=== PATIENT | male | born 1965 | race Caucasian/White ===

== ENCOUNTER 2017-01-06 22:31 | Emergency (ER) | payer OTHER ==
[~2017-01-06 22:31] MED LIST: ALBUTEROL0.09 MG/A4 IH; AMOXICILLIN 8751 TAB PO; BACTRIM DS 8001 TAB PO; BUFEN200 MG PO; CALCIUM500 MG PO; CETIRIZINE10 MG PO; GLEEVEC400 MG PO; GOOD NEIGHBOR500 M2 PO; INSULIN 70/3100 U/ML SC; INVANZ1 GM IV.SOLN; MULTIPLE VITAMI1 CAP PO; NOVOLIN 70/301.5 ML SQ; OXYCODONE5 M1 PO; PENICILLIN-VK500 M1 PO; PREDNISONE20 M1 PO; SPRYCEL20 MG
[2017-01-07 03:10] VITALS: BP 131/54
[2017-07-15] MEDS ORDERED: LASIX20 M1 PO (20:17)
[2017-07-15] MEDS ORDERED: ALBUTEROL2.5 MG/3 M IH (20:54)
== END 2017-01-07 03:20 | disposition short-term general hospital (02) ==
LOC: ED 22:31
DX: A41.9 Sepsis, unspecified organism (principal); L03.90 Cellulitis, unspecified; J90 Pleural effusion, not elsewhere classified; D72.829 Elevated white blood cell count, unspecified
CPT/HCPCS: J3370; J7030; J7050; Q9967

== ENCOUNTER 2017-01-11 11:48 | Outpatient (RCR) | payer OTHER ==
[2017-01-11 11:58] VITALS: BP 151/95
[2017-01-11] MEDS ORDERED: SPRYCEL100 MG PO (12:30)
[2017-01-11] MEDS ORDERED: ALEVE 220MG220 MG PO (12:31)
[2017-01-11] MEDS ORDERED: TESSALON PERLE100 M1 PO (12:32)
[2017-01-11 12:44] VITALS: BP 148/96
[2017-01-12 12:15] VITALS: BP 155/93
[2017-01-12 13:00] VITALS: BP 170/99
[2017-01-13 12:05] VITALS: BP 165/93
[2017-01-13 13:05] VITALS: BP 168/104
[2017-01-14 11:50] VITALS: BP 157/102
[2017-01-14 12:30] VITALS: BP 167/99
[2017-01-15 11:51] VITALS: BP 183/102
[2017-01-15 12:40] VITALS: BP 154/87
--- NOTE | 2017-01-15 12:41 | NUR ---
patient expressed concern when he was told what his admission b/p read, 183/102, he then stated he was supposed to see Dr. Dixon after his dismissal from the hospital and that he hasnt been notified of the appointment, this Nurse then called his office requesting a follow-up appointment, this Nurse was told the patient had not been a patients of Dr. Dixon since 11/2013, and that he was welcome to go to the walk-in clinic for a follow-up appointment, this information is relayed to the patient and he states he is not concerned about it and he feels it is high because he had just walked into the hospital for his IV med, dismissal b/p 154/87, he is dismissed ambulaotry to self care
[2017-01-16 11:54] VITALS: BP 136/81
[2017-01-16 12:43] VITALS: BP 144/79
[2017-01-17 12:11] VITALS: BP 132/70
[2017-01-17 12:53] VITALS: BP 157/87
[2017-01-18 12:05] VITALS: BP 170/92
[2017-01-18 12:46] VITALS: BP 129/82
[2017-01-19 12:17] VITALS: BP 156/84
[2017-01-19 12:54] VITALS: BP 140/94
[2017-01-20 12:12] VITALS: BP 139/89
[2017-01-20 13:20] VITALS: BP 138/79
--- NOTE | 2017-01-20 15:20 | NUR ---
ATTEMPT X 2 TO DRAW LAB OFF OF PICC. BOTH SAMPLES HAD HEMOLYZED AND HAD TO BE DISCARDED. LAB COMPLETES PERIPHERAL DRAW FOR LABS. CAP REPLACED AFTER EACH ATTEMPT TO DRAW LAB OFF OF PICC.
[2017-01-21 13:55] VITALS: BP 144/93
[2017-01-21 14:33] VITALS: BP 153/88
[2017-01-22 15:00] VITALS: BP 168/91
[2017-01-22 15:46] VITALS: BP 130/77
[2017-01-23 15:40] VITALS: BP 140/93
[2017-01-24 16:13] VITALS: BP 183/94
[2017-01-24 16:36] VITALS: BP 139/86
[2017-01-25 16:00] VITALS: BP 144/77
[2017-01-25 16:40] VITALS: BP 145/83
[2017-01-26 15:30] VITALS: BP 142/84
[2017-01-26 15:32] VITALS: BP 142/84
[2017-01-26 16:15] VITALS: BP 138/75
[2017-01-27 15:36] VITALS: BP 144/83
[2017-01-27 16:20] VITALS: BP 145/84
[2017-07-15] MEDS ORDERED: LASIX20 M1 PO (20:17)
[2017-07-15] MEDS ORDERED: ALBUTEROL2.5 MG/3 M IH (20:54)
== END 2017-01-27 17:00 | disposition home or self-care (01) ==
LOC: AMSURD 11:48
DX: L03.311 Cellulitis of abdominal wall (principal); M79.3 Panniculitis, unspecified; C92.11 Chronic myeloid leukemia, BCR/ABL-positive, in remission
CPT/HCPCS: J0696; J1644

== ENCOUNTER → 2017-01-13 | Outpatient (CLI) | payer OTHER ==
[~2017-01-13] MED LIST changes: +ALBUTEROL2.5 MG/3 M IH; +ALEVE 220MG220 MG PO; +CYCLOBENZAPRINE10 M1 PO; +LASIX20 M1 PO; +PERCOCET 325 MG1 TA2 PO; +SPRYCEL100 MG PO; +TESSALON PERLE100 M1 PO
== END ==
LOC: LAB 11:56
DX: M79.3 Panniculitis, unspecified (principal)

== ENCOUNTER → 2017-01-20 | Outpatient (CLI) | payer OTHER | LOC: LAB 12:16 | DX: M79.3 Panniculitis, unspecified (principal) ==

== ENCOUNTER → 2017-01-27 | Outpatient (CLI) | payer OTHER | LOC: LAB 15:23 | DX: M79.3 Panniculitis, unspecified (principal) ==

== ENCOUNTER 2017-04-22 21:11 | Emergency (ER) | payer OTHER ==
[~2017-04-22] VITALS: Ht 175.3 cm; Wt 152.3 kg
[~2017-04-22 21:11] MED LIST changes: -ALBUTEROL2.5 MG/3 M IH; -CYCLOBENZAPRINE10 M1 PO; -LASIX20 M1 PO; -PERCOCET 325 MG1 TA2 PO
[2017-04-22] MEDS ORDERED: CYCLOBENZAPRINE10 M1 PO (22:28)
[2017-04-22] MEDS ORDERED: PERCOCET 325 MG1 TA2 PO (22:37)
[2017-04-22 22:50] VITALS: BP 159/91
[2017-07-15] MEDS ORDERED: LASIX20 M1 PO (20:17)
[2017-07-15] MEDS ORDERED: ALBUTEROL2.5 MG/3 M IH (20:54)
== END 2017-04-22 22:50 | disposition home or self-care (01) ==
LOC: ED 21:11
DX: S29.012A Strain of muscle and tendon of back wall of thorax, initial encounter (principal); X58.XXXA Exposure to other specified factors, initial encounter
CPT/HCPCS: J1885; J2360

== ENCOUNTER → 2017-10-27 | Outpatient (CLI) | payer OTHER ==
[2017-07-17 10:38] VITALS: BP 133/75
[~2017-10-27] MED LIST changes: +ALBUTEROL2.5 MG/3 M IH; +CYCLOBENZAPRINE10 M1 PO; +LASIX20 M1 PO; +PERCOCET 325 MG1 TA2 PO
[2017-10-27 17:12] LABS: BUN/CREATININE RATIO 16.1 (6.0-26.0); CALCIUM 8.7 mg/dL (8.4-10.2); POTASSIUM 4.1 mmol/L (3.6-5.0)
== END ==
LOC: LAB 16:20
PROVIDERS: Family Medicine
DX: E11.65 Type 2 diabetes mellitus with hyperglycemia (principal); Z79.4 Long term (current) use of insulin

== ENCOUNTER 2018-09-01 06:09 | Inpatient (IN) | payer BC ==
[~2018-09-01] VITALS: Ht 175.3 cm; Wt 144.8 kg
[2018-09-01 07:15] LABS: HEMATOCRIT 46.1 % (42.0-52.0); HEMOGLOBIN 15.5 g/dL (13.5-18.0); MEAN CELL VOLUME 87 fl (78-100); MEAN CORPUSCULAR HEMOGLOBIN 29 pg (27-31); MEAN CORPUSCULAR HGB CONC 34 g/dL (33-37); MEAN PLATELET VOLUME 9.9 fl (7.4-10.4); PLATELET COUNT 277 K/mm3 (130-400); RED BLOOD COUNT 5.33 M/mm3 (4.20-5.60); RED CELL DISTRIBUTION WIDTH 12.8 % (11.5-14.5); WHITE BLOOD COUNT 13.9 K/mm3 (4.8-10.8)
[2018-09-01 07:20] LABS: ALBUMIN 4.1 g/dL (3.5-5.0); CALCIUM 9.4 mg/dL (8.4-10.2); POTASSIUM 4.9 mmol/L (3.6-5.0); TOTAL BILIRUBIN 1.1 mg/dL (0.2-1.3); TOTAL PROTEIN 7.9 g/dL (6.3-8.2)
[2018-09-01 07:22] LABS: LYMPHOCYTE 11 % (20-51); MONOCYTE 5 % (3-10); NEUTROPHILS 84 % (42-75)
[2018-09-01 12:04] LABS: URINE APPEARANCE CLEAR; URINE BILIRUBIN NEGATIVE (NEGATIVE); URINE BLOOD NEGATIVE (NEGATIVE); URINE COLOR YELLOW; URINE KETONE SMALL (NEGATIVE); URINE LEUKOCYTE ESTERASE NEGATIVE (NEGATIVE); URINE NITRATE NEGATIVE (NEGATIVE); URINE PROTEIN(semi-quant) 2+ mg/dL (NEGATIVE); URINE UROBILINOGEN NORMAL (NORMAL); URINE WBC 0-1 /hpf (0-3)
[2018-09-01] MEDS ORDERED: INSULIN 70/3100 U/ML SQ ×2 (13:36→13:38)
[2018-09-01] MEDS ORDERED: LASIX20 M1 PO (13:40)
[2018-09-01] MEDS ORDERED: NEURONTIN300 M1 PO (13:41)
--- NOTE | 2018-09-01 15:35 | NUR ---
Oxygen saturation 88% on room air. Oxygen applied at 2 liters per orders.
[2018-09-01 15:43] VITALS: BP 119/79
[2018-09-01 16:05] VITALS: BP 129/77
--- NOTE | 2018-09-01 18:30 | NUR ---
Patient requesting to have something to drink. States that his throat is dry. Arin Ramachandran APRN notified, states that patient may have just a few ice chips, then that is it. Ice chips provided per Arin Ramachandran APRN, and education provided. Patient verbalizes understanding. NG to low intermittent suction. Output has decreased since admission, and is tacker elastic band brownish clear. NS infusing through IV to right AC at ordered rate. Rates abdominal pain 4/10. Denies needs or questions at this time. Fall precautions in place.
--- NOTE | 2018-09-01 19:33 | NUR ---
REPORT RECEIVED FROM CALEB Strange RN.
[2018-09-01 19:39] VITALS: BP 139/80
--- NOTE | 2018-09-01 20:50 | NUR ---
THIS RN WITH PATIENT TO PERFORM SHIFT ASSESSMENT. PATIENT DOES NOT APPEAR TO BE IN ANY OBVIOUS DISTRESS AT THIS TIME. PATIENT IS ALERT AND ORIENTED. PATIENT REPORTS CONTINUING ABDOMINAL PAIN AND INTERMITTENT NAUSEA. NG TUBE REMAINS ON LOW INTERMITTENT SUCTION. IV TO RAC INTACT AND INFUSING NS AT 125 ML/HR. PATIENT CHANGES POSITION IN BED INDEPENDENTLY THROUGHOUT THE NIGHT. PATIENT CHANGES HOB ELEVATION INDEPENDENTLY. BED RAILS UP X2. CALL LIGHT WITHIN REACH. BED ALARM ARMED AT ALL TIMES. CLOSE MONITORING AND HOURLY ROUNDING CONTINUES.
[2018-09-01 23:00] VITALS: BP 134/86
--- NOTE | 2018-09-02 00:01 | NUR ---
PATIENT REQUESTS ICE CHIPS FOR THE THIRD TIME THIS SHIFT. DESPITE INTENSE EDUCATION BY MULTIPLE STAFF MEMBERS, PATIENT CONTINUES TO REQUEST ICE CHIPS, AT TIMES EVEN BECOMING ARGUMENTATIVE. ICE CHIPS PROVIDED WITH STRONG ADVICE NOT TO CONSUME THEM, THOUGH PATIENT CONTINUES TO REQUEST THEM AND ARGUE HIS CASE. IV NS CONTINUES. PATIENT ALSO REFUSES HIS SCD'S, STATING "I PREFER NOT TO WEAR THOSE."
[2018-09-02 03:35] VITALS: BP 146/87
[2018-09-02 06:29] VITALS: BP 148/89
--- NOTE | 2018-09-02 07:15 | NUR ---
REPORT GIVEN TO CALEB Strange RN.
[2018-09-02 07:23] LABS: EOS # 0.1 (0.04-0.40); EOS % 1.6 % (0.0-4.0); HEMATOCRIT 43.2 % (42.0-52.0); MEAN CELL VOLUME 90 fl (78-100); MEAN CORPUSCULAR HEMOGLOBIN 29 pg (27-31); MEAN CORPUSCULAR HGB CONC 32 g/dL (33-37); MEAN PLATELET VOLUME 10.1 fl (7.4-10.4); MONO # 0.8 (0.20-0.80); NEU # 5.6 (1.40-6.50); PLATELET COUNT 247 K/mm3 (130-400); RED BLOOD COUNT 4.78 M/mm3 (4.20-5.60); RED CELL DISTRIBUTION WIDTH 13.2 % (11.5-14.5); WHITE BLOOD COUNT 7.6 K/mm3 (4.8-10.8)
[2018-09-02 07:29] LABS: CALCIUM 8.2 mg/dL (8.4-10.2); POTASSIUM 4.7 mmol/L (3.6-5.0)
--- NOTE | 2018-09-02 09:56 | NUR ---
Gonzalo Dill APRN at bedside.
[2018-09-02 11:20] VITALS: BP 119/70
[2018-09-02 15:09] VITALS: BP 108/72
--- NOTE | 2018-09-02 18:00 | NUR ---
Patient sitting upright in bed. Rates pain 6/10 to abdomen. Describes pain as dull. Patient reports passing gas more, also reports small liquid stool. Patient states "once I started passing gas my abdomen didn't hurt as bad." Patient denies nausea. NS infusing through IV to right AC at ordered rate. NG tube to low intermittent suction. NG output is mostly clear, 200ml out in past 24 hours. Bowel sounds audible x4. Patient remains NPO. Requests ice chips frequently. Education provided. Keeps water at bedside to swish and spit. Patient denies needs or questions at this time. Fall precautions in place.
[2018-09-02 18:22] VITALS: BP 121/78
[2018-09-02 22:58] VITALS: BP 123/74
[2018-09-03 03:12] VITALS: BP 127/81
[2018-09-03 05:58] VITALS: BP 145/88
--- NOTE | 2018-09-03 07:20 | NUR ---
REPORT RECEIVED FROM CARLOS TUBBS.
--- NOTE | 2018-09-03 08:40 | NUR ---
SITTING UPRIGHT ON BED WITH ONE FOOT ON THE FLOOR. NG TUBE INTACT TO RT NARE. REPORTS HEADACHE AT 5/10. FOR THIS LEVEL OF PAIN HE WOULD TAKE TYLENOL AT HOME. HE WOULD PREFER NOT TO TAKE THE MORPHINE BECAUSE HE BELEIVES IT IS GIVING HIM REBOUND HEADACHES. WILL SPEAK TO HOSPITALIST ABOUT THIS REQUEST. HAS NASAL DRAINAGE AND REPORTS IT IS THICK- HE BELIEVES THIS IS R/T HIS NPO STATUS. THROAT NOTED TO HAVE A COBBLESTONE APPEARANCE. NG TUBE VISUALIZED AT BACK OF THROAT AND APPEARS WITHOUT BEND OR KINK. CONFIRMS FLATULENCE. FEELS RUMBLING IN HIS ABD. BOWEL SOUNDS ACTIVE X4 QUADS; SLIGHTLY MORE QUIET TO RUQ.
--- NOTE | 2018-09-03 10:00 | NUR ---
REPORT PROVIDED TO CALEB TUBBS.
[2018-09-03 11:20] VITALS: BP 122/77
--- NOTE | 2018-09-03 13:30 | NUR ---
NG tube clamped per Arin Read APRN orders. Patient ambulating in hallway with FULL ROLL INSPECTOR. Steady gait noted.
[2018-09-03 15:05] VITALS: BP 134/86
--- NOTE | 2018-09-03 17:45 | NUR ---
Patient alert and oriented. Sitting upright in bed. Reports headache has improved, but is still present. Rates headache 5/10. Requests tylenol when it is due. Denies abdominal pain or nausea. States "I haven't had any abdominal pain all day." Patient states "I had a little bit of nausea after I pooped today, it lasted about 20 min." Diet changed to clear liquids. Patient reports tolerating chicken broth, jello, and juice well. Requests more to eat. NG to right nare is clamped per orders. Bowel sounds audible x4. Had two large bowel movements today. NS infusing through IV to right AC at ordered rate. Education on insulin changes provided. Patient denies needs or questions at this time. Fall precautions in place.
[2018-09-03 18:20] VITALS: BP 128/88
[2018-09-03 22:57] VITALS: BP 134/76
[2018-09-04 03:18] VITALS: BP 124/81
[2018-09-04 06:26] VITALS: BP 144/91
[2018-09-04 07:52] LABS: EOS # 0.2 (0.04-0.40); EOS % 2.9 % (0.0-4.0); HEMOGLOBIN 13.1 g/dL (13.5-18.0); LYMPH# 1.3 (1.50-4.00); MEAN CELL VOLUME 91 fl (78-100); MEAN CORPUSCULAR HEMOGLOBIN 29 pg (27-31); MEAN CORPUSCULAR HGB CONC 32 g/dL (33-37); MEAN PLATELET VOLUME 9.5 fl (7.4-10.4); MONO # 0.6 (0.20-0.80); NEU # 4.6 (1.40-6.50); PLATELET COUNT 213 K/mm3 (130-400); RED BLOOD COUNT 4.52 M/mm3 (4.20-5.60); RED CELL DISTRIBUTION WIDTH 12.8 % (11.5-14.5); WHITE BLOOD COUNT 6.8 K/mm3 (4.8-10.8)
[2018-09-04 07:58] LABS: ALBUMIN 3.2 g/dL (3.5-5.0); CALCIUM 8.1 mg/dL (8.4-10.2); POTASSIUM 3.8 mmol/L (3.6-5.0); TOTAL BILIRUBIN 1.1 mg/dL (0.2-1.3); TOTAL PROTEIN 6.5 g/dL (6.3-8.2)
--- NOTE | 2018-09-04 10:44 | NUR ---
Pt tolerates breakfast well. NG tube removed. Pt denies any pain. Reports passing gas and excited to advance diet.
[2018-09-04 10:57] VITALS: BP 157/91
[2018-09-04 15:05] VITALS: BP 132/77
--- NOTE | 2018-09-04 17:53 | NUR ---
Pt is approved per [employer] for 4 days as of this date w/ review due on 09-05-18 for continued stay.
[2018-09-04 18:28] VITALS: BP 150/83
--- NOTE | 2018-09-04 18:51 | NUR ---
REPORT RECEIVED FROM ENRICO Kate RN.
--- NOTE | 2018-09-04 21:30 | NUR ---
Ambulated to the bathroom with Jayson VELEZ at side, gait steady. Pt did oral care. Pt also took shower. Tolerated without difficulty. No c/o's of dizziness or nausea.
--- NOTE | 2018-09-04 21:32 | NUR ---
C/o of neck pain from sleeping wrong last night. Stated it was more of a ache. Rated pain 4 out 10. Given tylenol 650mg PO. Pt had been given a snack of vanilla pudding, ate 100%.
[2018-09-04 23:43] VITALS: BP 128/82
--- NOTE | 2018-09-05 00:06 | NUR ---
PATIENT CONTINUES TO REST QUIETLY IN BED. HE DOES NOT APPEAR TO BE IN ANY OBVIOUS DISTRESS AT THIS TIME. PATIENT CHANGES HIS POSITION IN BED INDEPENDENTLY THROUGHOUT THE NIGHT. PATIENT HAS NO COMPLAINED OF PAIN AND HAS NO HAD ANY NEEDS OR REQUESTS. PATIENT'S HOB ELEVATED FOR COMFORT AND HE CHANGES THIS INDEPENDENTLY WELL. BED RAILS UP X2. BED ALARM ARMED AT ALL TIMES. CALL LIGHT WITHIN REACH. CLOSE MONITORING AND HOURLY ROUNDING CONTINUE.
[2018-09-05 02:39] VITALS: BP 144/95
[2018-09-05 06:16] VITALS: BP 150/84
--- NOTE | 2018-09-05 08:23 | NUR ---
REPORT GIVEN TO JACQUE Farley RN.
--- NOTE | 2018-09-05 09:43 | NUR ---
PT FOUND SITTING ON SIDE OF BED AFTER USING URINAL. DENIES ANY PAIN AT THIS TIME. STATED HE DID NOT SLEEP WELL. WAS ANXIOUS ABOUT THE PHLEGM HE WAS COUGHING UP. STATES LAST YEAR HE WAS IN A COMA AND WHEN HE CAME OUT HE HAD DIFFICULTY WITH PHLEGM, ALMOST ASPIRATING ON IT. LUNG SOUNDS ARE CLEAR. HOPES TO GO HOME TODAY. ATE REGULAR DIET WITHOUT DIFFICULTY THIS AM. NO OTHER NEEDS NOTED, WILL CONTINUE TO MONITOR.
[2018-09-05 11:25] VITALS: BP 151/98
--- NOTE | 2018-09-05 13:05 | NUR ---
IV DC'D. DISCHARGE INSTRUCTIONS DISCUSSED WITH THE PT, VERBALIZES UNDERSTANDING. PT DC'D TO HOME VIA AMBULATION.
== END 2018-09-05 16:00 | disposition home or self-care (01) | DRG 389 ==
LOC: ED 06:09 → MED/SURG 11:45
PROVIDERS: Nurse Practitioner Family; ADMIT Nurse Practitioner Primary Care
PROC: 0D9670Z Drainage of Stomach with Drainage Device, Via Natural or Artificial Opening (ICD-10-PCS; principal; 2018-09-01)
DX: K56.600 Partial intestinal obstruction, unspecified as to cause (principal); E87.1 Hypo-osmolality and hyponatremia; I10 Essential (primary) hypertension; E11.65 Type 2 diabetes mellitus with hyperglycemia; Z79.4 Long term (current) use of insulin; Z87.891 Personal history of nicotine dependence
CPT/HCPCS: J1815; J1940; J2270; J2405; J2550; J7030; Q9967

== ENCOUNTER 2019-02-15 22:30 | Emergency (ER) | payer BC ==
[~2019-02-15] VITALS: Ht 175.3 cm; Wt 150.0 kg
[~2019-02-15 22:30] MED LIST changes: +INSULIN 70/3100 U/ML SQ; +NEURONTIN300 M1 PO
[2019-02-15] MEDS ORDERED: SPIRIVA RE2.5 MCG/Ac IH (22:51)
[2019-02-15] MEDS ORDERED: PRINIVIL10 M1 PO (22:51)
[2019-02-15] MEDS ORDERED: SYMBICORT1 AE3 IH (22:52)
[2019-02-15] MEDS ORDERED: NORCO 10-325 T1 EACH PO (23:54)
[2019-02-16 00:11] VITALS: BP 149/90
== END 2019-02-16 00:07 | disposition home or self-care (01) ==
LOC: ED 22:30
DX: M25.561 Pain in right knee (principal); I11.0 Hypertensive heart disease with heart failure; I50.9 Heart failure, unspecified; C92.10 Chronic myeloid leukemia, BCR/ABL-positive, not having achieved remission; E11.9 Type 2 diabetes mellitus without complications; K21.9 Gastro-esophageal reflux disease without esophagitis; M19.90 Unspecified osteoarthritis, unspecified site; J44.9 Chronic obstructive pulmonary disease, unspecified; Z79.4 Long term (current) use of insulin; Z79.51 Long term (current) use of inhaled steroids

== ENCOUNTER 2019-09-14 21:19 | Emergency (ER) | payer BC ==
[~2019-09-14] VITALS: Ht 175.3 cm; Wt 154.5 kg
[~2019-09-14 21:19] MED LIST changes: +NORCO 10-325 T1 EACH PO; +PRINIVIL10 M1 PO; +SPIRIVA RE2.5 MCG/Ac IH; +SYMBICORT1 AE3 IH
[2019-09-14] MEDS ORDERED: LOSARTAN POTASS50 M1 PO (21:35)
[2019-09-14] MEDS ORDERED: ULTRAM50 M1 PO (22:06)
[2019-09-14 22:38] VITALS: BP 116/62
== END 2019-09-14 22:25 | disposition home or self-care (01) ==
LOC: ED 21:19
DX: S46.011A Strain of muscle(s) and tendon(s) of the rotator cuff of right shoulder, initial encounter (principal); J44.9 Chronic obstructive pulmonary disease, unspecified; I11.0 Hypertensive heart disease with heart failure; I50.9 Heart failure, unspecified; Z85.79 Personal history of other malignant neoplasms of lymphoid, hematopoietic and related tissues; Z98.890 Other specified postprocedural states; Z88.8 Allergy status to other drugs, medicaments and biological substances; Z88.0 Allergy status to penicillin

== ENCOUNTER 2019-09-19 14:47 | Emergency (ER) | payer BC ==
[~2019-09-19] VITALS: Ht 175.3 cm; Wt 156.4 kg
[~2019-09-19 14:47] MED LIST changes: +LOSARTAN POTASS50 M1 PO; +ULTRAM50 M1 PO
[2019-09-19 15:24] LABS: HEMATOCRIT 40.9 % (42.0-52.0); HEMOGLOBIN 12.8 g/dL (13.5-18.0); MEAN CELL VOLUME 91 fl (78-100); MEAN CORPUSCULAR HEMOGLOBIN 28 pg (27-31); MEAN CORPUSCULAR HGB CONC 31 g/dL (33-37); MEAN PLATELET VOLUME 9.4 fl (7.4-10.4); PLATELET COUNT 316 K/mm3 (130-400); RED CELL DISTRIBUTION WIDTH 12.8 % (11.5-14.5); WHITE BLOOD COUNT 11.1 K/mm3 (4.8-10.8)
[2019-09-19 15:39] LABS: ALBUMIN 3.2 g/dL (3.5-5.0); POTASSIUM 4.3 mmol/L (3.5-5.1)
[2019-09-19 15:40] LABS: CALCIUM 9.4 mg/dL (8.3-10.5)
[2019-09-19 15:41] LABS: TOTAL PROTEIN 7.7 g/dL (6.4-8.3)
[2019-09-19 15:43] LABS: TOTAL BILIRUBIN 0.8 mg/dL (0.2-1.2)
[2019-09-19 15:55] LABS: LYMPHOCYTE 18 % (20-51); MONOCYTE 8 % (3-10); NEUTROPHILS 73 % (42-75)
[2019-09-19 17:12] LABS: URINE APPEARANCE CLEAR; URINE BILIRUBIN NEGATIVE (NEGATIVE); URINE BLOOD 50 ery/uL (NEGATIVE); URINE COLOR YELLOW; URINE GLUCOSE NEGATIVE (NEGATIVE); URINE KETONE NEGATIVE (NEGATIVE); URINE LEUKOCYTE ESTERASE NEGATIVE (NEGATIVE); URINE NITRATE NEGATIVE (NEGATIVE); URINE PROTEIN(semi-quant) 3+ mg/dL (NEGATIVE); URINE UROBILINOGEN 4 mg/dL (NORMAL); URINE WBC 0-1 /hpf (0-3)
[2019-09-19 17:13] LABS: URINE MUCUS PRESENT (NOT PRESENT)
[2019-09-19] MEDS ORDERED: ZOFRAN ODT4 MG PO (18:30)
[2019-09-19] MEDS ORDERED: CEPHALEXIN500 M1 PO (18:30)
[2019-09-19 18:49] VITALS: BP 129/83
== END 2019-09-19 18:51 | disposition home or self-care (01) ==
LOC: ED 14:47
PROVIDERS: Family Medicine
DX: L03.113 Cellulitis of right upper limb (principal); K52.9 Noninfective gastroenteritis and colitis, unspecified; I11.0 Hypertensive heart disease with heart failure; I50.9 Heart failure, unspecified; J44.9 Chronic obstructive pulmonary disease, unspecified; Z85.6 Personal history of leukemia
CPT/HCPCS: A4216; J0696; J1885; J2405

== ENCOUNTER → 2019-10-04 | Outpatient (CLI) | payer BC ==
[2019-10-03 17:41] VITALS: BP 150/100
[~2019-10-04] MED LIST changes: +CEPHALEXIN500 M1 PO; +ZOFRAN ODT4 MG PO
== END ==
LOC: LAB 17:44
DX: M00.9 Pyogenic arthritis, unspecified (principal)

== ENCOUNTER → 2019-10-11 | Outpatient (CLI) | payer BC ==
[2019-10-11 17:45] VITALS: BP 138/90
[2019-10-11 18:12] LABS: EOS # 0.2 (0.04-0.40); EOS % 2.1 % (0.0-4.0); HEMATOCRIT 40.5 % (42.0-52.0); HEMOGLOBIN 12.4 g/dL (13.5-18.0); LYMPH# 1.6 (1.50-4.00); MEAN CELL VOLUME 91 fl (78-100); MEAN CORPUSCULAR HEMOGLOBIN 28 pg (27-31); MEAN CORPUSCULAR HGB CONC 31 g/dL (33-37); MEAN PLATELET VOLUME 9.2 fl (7.4-10.4); MONO # 0.7 (0.20-0.80); NEU # 5.1 (1.40-6.50); PLATELET COUNT 280 K/mm3 (130-400); RED BLOOD COUNT 4.44 M/mm3 (4.20-5.60); RED CELL DISTRIBUTION WIDTH 13.6 % (11.5-14.5); WHITE BLOOD COUNT 7.7 K/mm3 (4.8-10.8)
[2019-10-11 18:19] LABS: ALBUMIN 3.5 g/dL (3.5-5.0); POTASSIUM 4.2 mmol/L (3.5-5.1)
[2019-10-11 18:20] LABS: CALCIUM 9.4 mg/dL (8.3-10.5)
[2019-10-11 18:22] LABS: TOTAL PROTEIN 7.9 g/dL (6.4-8.3)
[2019-10-11 18:23] LABS: TOTAL BILIRUBIN 0.5 mg/dL (0.2-1.2)
[2019-10-11 19:17] LABS: ERYTHROCYTE SEDIMENTATION RATE 54 mm/hr (0-20)
== END ==
LOC: LAB 17:49
PROVIDERS: Internal Medicine Infectious Disease
DX: M00.9 Pyogenic arthritis, unspecified (principal)

== ENCOUNTER → 2019-10-18 | Outpatient (CLI) | payer BC ==
[2019-10-17 17:17] VITALS: BP 140/101
[2019-10-18 20:39] LABS: HEMATOCRIT 42.1 % (42.0-52.0); MEAN PLATELET VOLUME 9.8 fl (7.4-10.4); RED BLOOD COUNT 4.63 M/mm3 (4.20-5.60); RED CELL DISTRIBUTION WIDTH 13.9 % (11.5-14.5); WHITE BLOOD COUNT 7.3 K/mm3 (4.8-10.8)
[2019-10-18 20:45] LABS: ALBUMIN 3.5 g/dL (3.5-5.0); POTASSIUM 4.1 mmol/L (3.5-5.1)
[2019-10-18 20:46] LABS: CALCIUM 9.3 mg/dL (8.3-10.5)
[2019-10-18 20:50] LABS: TOTAL BILIRUBIN 0.2 mg/dL (0.2-1.2)
== END ==
LOC: LAB 17:02
PROVIDERS: Nurse Practitioner Primary Care
DX: M00.9 Pyogenic arthritis, unspecified (principal)

== ENCOUNTER → 2019-10-25 | Outpatient (CLI) | payer BC ==
[2019-10-25 17:35] VITALS: BP 142/85
[2019-10-25 17:52] LABS: EOS # 0.1 (0.04-0.40); EOS % 1.1 % (0.0-4.0); HEMATOCRIT 44.4 % (42.0-52.0); HEMOGLOBIN 14.1 g/dL (13.5-18.0); LYMPH# 2.2 (1.50-4.00); MEAN CELL VOLUME 89 fl (78-100); MEAN CORPUSCULAR HEMOGLOBIN 28 pg (27-31); MEAN CORPUSCULAR HGB CONC 32 g/dL (33-37); MEAN PLATELET VOLUME 9.4 fl (7.4-10.4); MONO # 0.7 (0.20-0.80); NEU # 7.7 (1.40-6.50); PLATELET COUNT 277 K/mm3 (130-400); RED BLOOD COUNT 4.99 M/mm3 (4.20-5.60); RED CELL DISTRIBUTION WIDTH 13.7 % (11.5-14.5); WHITE BLOOD COUNT 10.7 K/mm3 (4.8-10.8)
[2019-10-25 17:56] LABS: ALBUMIN 3.7 g/dL (3.5-5.0); POTASSIUM 4.5 mmol/L (3.5-5.1)
[2019-10-25 17:57] LABS: CALCIUM 9.5 mg/dL (8.3-10.5)
[2019-10-25 17:58] LABS: TOTAL PROTEIN 8.3 g/dL (6.4-8.3)
[2019-10-25 18:00] LABS: TOTAL BILIRUBIN 0.3 mg/dL (0.2-1.2)
[2019-10-25 18:48] LABS: ERYTHROCYTE SEDIMENTATION RATE 38 mm/hr (0-20)
== END ==
LOC: LAB 17:47
PROVIDERS: Internal Medicine Infectious Disease
DX: M00.9 Pyogenic arthritis, unspecified (principal)

== ENCOUNTER → 2019-11-01 | Outpatient (CLI) | payer BC ==
[2019-10-31 17:40] VITALS: BP 133/84
[2019-11-01 18:21] LABS: HEMATOCRIT 41.3 % (42.0-52.0); HEMOGLOBIN 13.1 g/dL (13.5-18.0); MEAN PLATELET VOLUME 9.7 fl (7.4-10.4); RED BLOOD COUNT 4.65 M/mm3 (4.20-5.60); RED CELL DISTRIBUTION WIDTH 13.6 % (11.5-14.5); WHITE BLOOD COUNT 9.9 K/mm3 (4.8-10.8)
[2019-11-01 18:24] LABS: ALBUMIN 3.5 g/dL (3.5-5.0)
[2019-11-01 18:26] LABS: CALCIUM 9.2 mg/dL (8.3-10.5)
[2019-11-01 18:27] LABS: TOTAL PROTEIN 7.8 g/dL (6.4-8.3)
[2019-11-01 18:29] LABS: TOTAL BILIRUBIN 0.3 mg/dL (0.2-1.2)
== END ==
LOC: LAB 17:34
PROVIDERS: Internal Medicine Infectious Disease
DX: Z79.899 Other long term (current) drug therapy (principal)

== ENCOUNTER → 2019-11-08 | Outpatient (CLI) | payer BC ==
[2019-11-07 17:00] VITALS: BP 136/81
[2019-11-08 11:15] LABS: ALBUMIN 3.6 g/dL (3.5-5.0); POTASSIUM 3.9 mmol/L (3.5-5.1)
[2019-11-08 11:17] LABS: CALCIUM 9.8 mg/dL (8.3-10.5)
[2019-11-08 11:20] LABS: TOTAL BILIRUBIN 0.5 mg/dL (0.2-1.2)
[2019-11-08 11:37] LABS: HEMATOCRIT 42.7 % (42.0-52.0); HEMOGLOBIN 13.6 g/dL (13.5-18.0); MEAN PLATELET VOLUME 9.5 fl (7.4-10.4); RED BLOOD COUNT 4.83 M/mm3 (4.20-5.60)
== END ==
LOC: LAB 10:50
PROVIDERS: Nurse Practitioner Primary Care
DX: M00.9 Pyogenic arthritis, unspecified (principal)

== ENCOUNTER 2019-11-11 11:39 | Outpatient (RCR) | payer BC ==
[2019-09-28 17:49] VITALS: BP 124/68
[2019-09-29 18:10] VITALS: BP 171/101
--- NOTE | 2019-09-29 18:24 | NUR ---
PATIENT TOLERATED WELL; GOOD BLOOD RETURN WITH BOTH LUMENS AND FLUSHED EASILY. PATIENT'S DRESSING IS STARTING TO COME UP ON THE EDGES; HE IS ASKING FOR IT TO BE CHANGED TOMORROW NIGHT. WILL LEAVE A NOTE FOR TOMORROW'S NURSE. PT IS AMBULATORY WITH A CANE OUT OF DEPT WITHOUT INCIDENT.
[2019-09-30 17:55] VITALS: BP 158/109
[2019-10-01 17:46] VITALS: BP 147/98
[2019-10-02 17:21] VITALS: BP 119/86
[2019-10-03 17:41] VITALS: BP 150/100
[2019-10-04 17:50] VITALS: BP 154/100
[2019-10-05 17:36] VITALS: BP 131/90
[2019-10-06 17:36] VITALS: BP 176/105
[2019-10-07 17:22] VITALS: BP 160/88
[2019-10-08 17:23] VITALS: BP 149/95
[2019-10-09 17:47] VITALS: BP 160/98
[2019-10-10 17:11] VITALS: BP 121/90
[2019-10-11 17:45] VITALS: BP 138/90
[2019-10-12 17:48] VITALS: BP 168/94
[2019-10-12 18:11] VITALS: BP 132/77
[2019-10-13 16:15] VITALS: BP 147/103
--- NOTE | 2019-10-13 17:42 | NUR ---
PT EDUCATED REGARDING HIGH BLOOD PRESSURE OF 147/103. PT DENIES WANTING TO BE SEEN BY PHYSICIAN.
[2019-10-14 17:38] VITALS: BP 165/100
[2019-10-15 17:33] VITALS: BP 156/101
[2019-10-16 18:44] VITALS: BP 151/88
[2019-10-17 17:17] VITALS: BP 140/101
[2019-10-18 17:23] VITALS: BP 149/99
[2019-10-19 17:02] VITALS: BP 155/93
[2019-10-20 17:24] VITALS: BP 145/94
[2019-10-21 17:30] VITALS: BP 129/76
[2019-10-22 17:32] VITALS: BP 136/72
[2019-10-23 17:56] VITALS: BP 138/104
[2019-10-24 17:40] VITALS: BP 149/106
[2019-10-25 17:35] VITALS: BP 142/85
[2019-10-26 17:42] VITALS: BP 129/84
[2019-10-27 15:04] VITALS: BP 159/93
[2019-10-28 16:46] VITALS: BP 179/102
[2019-10-29 17:45] VITALS: BP 182/96
[2019-10-30 19:00] VITALS: BP 143/93
[2019-10-31 17:40] VITALS: BP 133/84
[2019-11-01 17:30] VITALS: BP 151/95
[2019-11-02 18:10] VITALS: BP 173/97
--- NOTE | 2019-11-02 18:20 | NUR ---
PT IN FOR IV ANTIBIOTICS. PT AMBULATES TO THE ROOM 4 WITH CANE. PT OFFERS NO COMPLIAINTS OF CHANGE IN CONDITION. BOTH PORT ON PICC LINE FLUSHED WITH BLOOD RETURN. IV ROCEPHIN 2GM GIVEN THROUGH PURPLE PORT. PT WILL RETURN IN THE EVENING TOMRROW EVENING.
[2019-11-03 16:42] VITALS: BP 158/93
[2019-11-04 17:48] VITALS: BP 137/80
[2019-11-05 17:40] VITALS: BP 170/108
[2019-11-06 16:38] VITALS: BP 147/89
[2019-11-07 17:00] VITALS: BP 136/81
[~2019-11-11] VITALS: Ht 175.3 cm; Wt 156.4 kg
[2019-11-11 11:53] VITALS: BP 122/77
== END 2019-11-11 12:04 | disposition home or self-care (01) ==
LOC: AMSURD 11:39
DX: M00.9 Pyogenic arthritis, unspecified (principal)
CPT/HCPCS: J0696; J1644

== ENCOUNTER → 2021-11-05 | Outpatient (CLI) | payer SELFPAY ==
[2021-11-05 14:37] LABS: EOS # 0.17 K/mm3 (0.04-0.40); EOS % 1.6 % (0.0-4.0); HEMATOCRIT 41.6 % (42.0-52.0); HEMOGLOBIN 13.6 g/dL (13.5-18.0); LYMPH# 1.97 K/mm3 (1.50-4.00); MEAN CELL VOLUME 89 fl (78-100); MEAN CORPUSCULAR HEMOGLOBIN 29 pg (27-31); MEAN CORPUSCULAR HGB CONC 33 g/dL (33-37); MEAN PLATELET VOLUME 9.4 fl (7.4-10.4); MONO # 0.58 K/mm3 (0.20-0.80); NEU # 7.75 K/mm3 (1.40-6.50); PLATELET COUNT 270 K/mm3 (130-400); RED CELL DISTRIBUTION WIDTH 12.4 % (11.5-14.5); WHITE BLOOD COUNT 10.5 K/mm3 (4.8-10.8)
[2021-11-05 14:45] LABS: ALBUMIN 3.9 g/dL (3.5-5.0)
[2021-11-05 14:46] LABS: POTASSIUM 4.5 mmol/L (3.5-5.1)
[2021-11-05 14:47] LABS: CALCIUM 10.1 mg/dL (8.3-10.5)
[2021-11-05 14:48] LABS: TOTAL PROTEIN 8.2 g/dL (6.4-8.3)
[2021-11-05 14:50] LABS: TOTAL BILIRUBIN 0.3 mg/dL (0.2-1.2)
== END ==
LOC: LAB 14:13
PROVIDERS: Registered Nurse
DX: C80.1 Malignant (primary) neoplasm, unspecified (principal); E11.9 Type 2 diabetes mellitus without complications; I10 Essential (primary) hypertension

== ENCOUNTER 2021-11-18 06:25 | Emergency (ER) | payer SELFPAY ==
[2021-11-18] MEDS ORDERED: APRESOLINE 25MG25 MG (06:38)
[2021-11-18] MEDS ORDERED: CLEOCIN HCL150 M1 PO (07:43)
[2021-11-18] MEDS ORDERED: TOBRAMYCIN 5 ML5 ML OS (07:45)
[2021-11-18 07:57] VITALS: BP 143/84
== END 2021-11-18 08:00 | disposition home or self-care (01) ==
LOC: ED 06:25
DX: H10.89 Other conjunctivitis (principal); H01.006 Unspecified blepharitis left eye, unspecified eyelid; J44.9 Chronic obstructive pulmonary disease, unspecified; E11.22 Type 2 diabetes mellitus with diabetic chronic kidney disease; N18.9 Chronic kidney disease, unspecified; Z79.4 Long term (current) use of insulin; Z79.51 Long term (current) use of inhaled steroids

== ENCOUNTER 2024-07-25 21:17 | Emergency (ER) | payer MEDICARE, MEDICAID ==
[~2024-07-25] VITALS: Ht 170.2 cm; Wt 156.3 kg
[~2024-07-25 21:17] MED LIST changes: +APRESOLINE 25MG25 MG; +CLEOCIN HCL150 M1 PO; +TOBRAMYCIN 5 ML5 ML OS
[2024-07-25] MEDS ORDERED: NEURONTIN300 MG/CAP (21:32)
[2024-07-25] MEDS ORDERED: INSULIN NOVO100 U/ML SQ (21:32)
[2024-07-25] MEDS ORDERED: ROSUVASTATIN CA10 MG PO (21:36)
[2024-07-25] MEDS ORDERED: ACETAMINOPHEN-H1 TA2 PO (21:36)
[2024-07-25] MEDS ORDERED: ZAROXOLYN (21:37)
[2024-07-25] MEDS ORDERED: CLARITIN10 M1 PO (21:44)
[2024-07-25] MEDS ORDERED: FAMOTIDINE20 MG PO (21:45)
[2024-07-25] MEDS ORDERED: BOSULIF (21:45)
[2024-07-25] MEDS ORDERED: BENZONATATE100 M2 PO (21:46)
[2024-07-25] MEDS ORDERED: Clindamycin 150 MG CAP PO ONE (23:00)
[2024-07-25] MEDS ORDERED: CLEOCIN HCL300 MG PO (23:00)
[2024-07-25 23:23] VITALS: BP 158/93
== END 2024-07-25 23:23 | disposition home or self-care (01) ==
LOC: ED 21:17
DX: L03.114 Cellulitis of left upper limb (principal); L02.414 Cutaneous abscess of left upper limb; E66.01 Morbid (severe) obesity due to excess calories; Z23 Encounter for immunization; Z68.43 Body mass index [BMI] 50.0-59.9, adult
CPT/HCPCS: 90715

== ENCOUNTER 2024-09-09 07:29 | Emergency (ER) | payer MEDICARE ==
[~2024-09-09] VITALS: Ht 170.2 cm; Wt 155.4 kg
[~2024-09-09 07:29] MED LIST changes: +ACETAMINOPHEN-H1 TA2 PO; +BENZONATATE100 M2 PO; +BOSULIF; +CLARITIN10 M1 PO; +CLEOCIN HCL300 MG PO; +FAMOTIDINE20 MG PO; +INSULIN NOVO100 U/ML SQ; +NEURONTIN300 MG/CAP; +ROSUVASTATIN CA10 MG PO; +ZAROXOLYN
[2024-09-09 08:27] LABS: BASO # 0.01 K/mm3 (0.02-0.10); EOS # 0.32 K/mm3 (0.04-0.40); EOS % 4.7 % (0.0-4.0); HEMATOCRIT 40.1 % (42.0-52.0); HEMOGLOBIN 12.8 g/dL (13.5-18.0); LYMPH# 1.42 K/mm3 (1.50-4.00); MEAN CELL VOLUME 92 fl (78-100); MEAN CORPUSCULAR HEMOGLOBIN 29 pg (27-31); MEAN CORPUSCULAR HGB CONC 32 g/dL (33-37); MEAN PLATELET VOLUME 9.7 fl (7.4-10.4); MONO # 0.55 K/mm3 (0.20-0.80); NEU # 4.44 K/mm3 (1.40-6.50); PLATELET COUNT 234 K/mm3 (130-400); RED BLOOD COUNT 4.37 M/mm3 (4.20-5.60); WHITE BLOOD COUNT 6.8 K/mm3 (4.8-10.8)
[2024-09-09] MEDS ORDERED: Albuterol/Ipratropium 3 MG-0.5 MG/3 ML Neb Soln IH ONE (08:30)
[2024-09-09 08:34] LABS: ALBUMIN 3.6 g/dL (3.4-4.8)
[2024-09-09 08:36] LABS: CALCIUM 9.3 mg/dL (8.3-10.5)
[2024-09-09 08:37] LABS: TOTAL PROTEIN 7.2 g/dL (6.2-8.1)
[2024-09-09 08:39] LABS: TOTAL BILIRUBIN 0.3 mg/dL (0.2-1.2)
[2024-09-09] MEDS ORDERED: predniSONE 20 MG TAB PO ONE (09:00)
[2024-09-09] MEDS ORDERED: Amoxicillin/Clavulanate K+ 875/125 MG TAB PO ONE (09:00)
[2024-09-09] MEDS ORDERED: NEB INH (09:02)
[2024-09-09] MEDS ORDERED: PREDNISONE10 MG PO (10:35)
[2024-09-09] MEDS ORDERED: AMOXICILLIN AND1 TA2 PO (10:36)
[2024-09-09 10:38] VITALS: BP 164/95
[2024-09-09] MEDS ORDERED: IPRATROPIUM BROM3 M1 IH (15:25)
== END 2024-09-09 10:49 | disposition home or self-care (01) ==
LOC: ED 07:29
PROVIDERS: Nurse Practitioner
DX: J44.1 Chronic obstructive pulmonary disease with (acute) exacerbation (principal); I13.0 Hypertensive heart and chronic kidney disease with heart failure and stage 1 through stage 4 chronic kidney disease, or unspecified chronic kidney disease; E11.22 Type 2 diabetes mellitus with diabetic chronic kidney disease; N18.9 Chronic kidney disease, unspecified; I50.9 Heart failure, unspecified; E66.01 Morbid (severe) obesity due to excess calories; Z79.4 Long term (current) use of insulin; Z99.81 Dependence on supplemental oxygen
CPT/HCPCS: J7512

== ENCOUNTER 2024-09-23 12:35 | Emergency (ER) | payer MEDICARE ==
[~2024-09-23] VITALS: Ht 170.2 cm; Wt 156.8 kg
[~2024-09-23 12:35] MED LIST changes: +AMOXICILLIN AND1 TA2 PO; +IPRATROPIUM BROM3 M1 IH; +NEB INH; +PREDNISONE10 MG PO
[2024-09-23] MEDS ORDERED: HYDROcodone/Acetaminophen 7.5-325 MG TAB PO ONE (13:00)
[2024-09-23] MEDS ORDERED: traMADol 50 MG TAB PO ONE (13:00)
[2024-09-23 14:05] VITALS: BP 125/68
== END 2024-09-23 14:17 | disposition home or self-care (01) ==
LOC: ED 12:35
DX: M25.512 Pain in left shoulder (principal); E66.01 Morbid (severe) obesity due to excess calories; E11.42 Type 2 diabetes mellitus with diabetic polyneuropathy; Z79.4 Long term (current) use of insulin; X50.9XXA Other and unspecified overexertion or strenuous movements or postures, initial encounter

== ENCOUNTER 2024-11-11 07:45 | Outpatient (RCR) | payer MEDICARE | END 2024-12-10 | disposition home or self-care (01) | LOC: PT | DX: M25.512 Pain in left shoulder (principal) ==

== ENCOUNTER 2024-12-13 13:58 | Emergency (ER) | payer MEDICARE ==
[~2024-12-13] VITALS: Ht 175.3 cm; Wt 145.4 kg
[2024-12-13] MEDS ORDERED: FARXIGA10 MG PO (14:17)
[2024-12-13 14:28] LABS: BASO # 0.02 K/mm3 (0.02-0.10); EOS # 0.13 K/mm3 (0.04-0.40); EOS % 1.4 % (0.0-4.0); HEMATOCRIT 44.9 % (42.0-52.0); HEMOGLOBIN 13.9 g/dL (13.5-18.0); LYMPH# 1.29 K/mm3 (1.50-4.00); MEAN CELL VOLUME 92 fl (78-100); MEAN CORPUSCULAR HEMOGLOBIN 28 pg (27-31); MEAN CORPUSCULAR HGB CONC 31 g/dL (33-37); MEAN PLATELET VOLUME 9.6 fl (7.4-10.4); MONO # 0.91 K/mm3 (0.20-0.80); NEU # 7.02 K/mm3 (1.40-6.50); PLATELET COUNT 253 K/mm3 (130-400); RED CELL DISTRIBUTION WIDTH 12.8 % (11.5-14.5); WHITE BLOOD COUNT 9.4 K/mm3 (4.8-10.8)
[2024-12-13 14:35] LABS: ALBUMIN 3.9 g/dL (3.4-4.8)
[2024-12-13 14:37] LABS: CALCIUM 9.6 mg/dL (8.3-10.5)
[2024-12-13 14:38] LABS: TOTAL PROTEIN 8.1 g/dL (6.2-8.1)
[2024-12-13 14:40] LABS: TOTAL BILIRUBIN 0.4 mg/dL (0.2-1.2)
[2024-12-13 15:22] LABS: RSV RAPID MOLECULAR IN HOUSE NEGATIVE (NEGATIVE)
[2024-12-13] MEDS ORDERED: SYMBICORT1 AE3 IH (15:44)
[2024-12-13] MEDS ORDERED: PREDNISONE20 M1 PO (15:44)
[2024-12-13] MEDS ORDERED: Albuterol/Ipratropium 3 MG-0.5 MG/3 ML Neb Soln IH ONE (15:45)
[2024-12-13] MEDS ORDERED: methylPREDNISolone Sod Succ 125 MG/2 ML VIAL IV ONE (16:00)
[2024-12-13 16:56] VITALS: BP 150/81
== END 2024-12-13 16:51 | disposition home or self-care (01) ==
LOC: ED 13:58
PROVIDERS: Physician Assistant
DX: J44.1 Chronic obstructive pulmonary disease with (acute) exacerbation (principal); J06.9 Acute upper respiratory infection, unspecified; Z99.81 Dependence on supplemental oxygen
CPT/HCPCS: J2919